=== PATIENT | male | born 1960 | race Caucasian/White ===

== ENCOUNTER 2019-09-15 07:59 | Emergency (ER) | payer MEDICAID ==
[~2019-09-15] VITALS: Ht 177.8 cm; Wt 79.4 kg
[~2019-09-15 07:59] MED LIST: CLIN300 PO; IBUP400; OXYACE7.5T PO
[2019-09-15] MEDS ORDERED: CYCL10 PO (09:58)
[2019-09-15] MEDS ORDERED: Prednisone20 MG PO (09:58)
[2019-09-15] MEDS ORDERED: KETO10 PO (09:58)
== END 2019-09-15 10:08 | disposition home or self-care (01) ==
LOC: ER 07:59
DX: M51.16 Intervertebral disc disorders with radiculopathy, lumbar region (principal); Z88.0 Allergy status to penicillin; Z87.891 Personal history of nicotine dependence
CPT/HCPCS: 72100

== ENCOUNTER 2022-10-01 08:19 | Day surgery (SDC) | payer OTHER ==
[~2022-10-01] VITALS: Ht 177.8 cm; Wt 82.7 kg
[~2022-10-01 08:19] MED LIST changes: +CYCL10 PO; +DIAZ5 PO; +KETO10 PO; +NAPR220 PO; +Oxycodone HCl20 M1 PO; +Prednisone20 MG PO; +TAMS.4ER PO
--- NOTE | 2022-10-01 09:33 | NUR ---
History, Chart, Medications and Allergies reviewed before start of procedure. Patient confirms NPO status and agrees with scheduled surgery. Patient States Post-Procedure ride home has been arranged. PT BELONGINGS PLACED UNDERNEATH [facility] BED FOR SAFEKEEPING. PT CELL PHONE PLACED IN JACKET POCKET IN BELONGING BAG UNDERNEATH [facility] FOR SAFEKEEPING. VERBAL CONFIRMATION FROM DR BANG PALOMARES TO PROCEED WITH [facility].
--- NOTE | 2022-10-01 10:34 | NUR ---
10/01/22 1034 Devon Abebe 16F DUNN CATHETER PLACED PREOPERATIVELY IN OR AT 1010. INFLATED WITH 10CC FLUID. PLACED BY ORD.DXS WITHOUT DIFFICULTY.
--- NOTE | 2022-10-01 13:31 | NUR ---
DISCHARGE: Patient up to Ambulate independently. Gait steady. Discharge instructions reviewed with patient. Patient verbalizes understanding. Copy given to patient to take home. Patient States Post-Procedure ride home has been arranged. Discharged via wheelchair to private car for ride home. PT REPORTS PAIN TOLERABLE, REPORTS READY TO GO HOME. PT DENIES N/V,SOB,CP. PT SITES TO [facility]. PT FRIEND REPORTS HAVING ICE PACK AT HOME.
== END 2022-10-01 13:31 | disposition home or self-care (01) ==
LOC: ORSCMMR 08:19 → ORD 10:15 → ORSCMMR 13:31
PROVIDERS: Surgery
PROC: 0YU54JZ Supplement Right Inguinal Region with Synthetic Substitute, Percutaneous Endoscopic Approach (ICD-10-PCS; principal; 2022-10-01 10:15)
PROC: 8E0W4CZ Robotic Assisted Procedure of Trunk Region, Percutaneous Endoscopic Approach (ICD-10-PCS; principal; 2022-10-01 10:15)
DX: K40.90 Unilateral inguinal hernia, without obstruction or gangrene, not specified as recurrent (principal); I10 Essential (primary) hypertension; Z87.891 Personal history of nicotine dependence; K21.9 Gastro-esophageal reflux disease without esophagitis; R73.03 Prediabetes; Z79.899 Other long term (current) drug therapy
CPT/HCPCS: 49650; S2900; A9270; C1781; J0690; J1885; J2250; J2704; J3010; J7120